=== PATIENT | male | born 1985 | race American Indian/Alaskan Native ===

== ENCOUNTER 2019-04-05 12:19 | Emergency (ER) | payer SELFPAY ==
--- NOTE | 2019-04-05 12:29 | Emergency Department Report ---
Blank Doc - Documentation Documentation: This is a 33-year-old male that presents with nausea and abdominal pain. This initial assessment/diagnostic orders/clinical plan/treatment(s) is/are subject to change based on patient's health status, clinical progression and re- assessment by fellow clinical providers in the ED. Further treatment and workup at subsequent clinical providers discretion. Patient/guardians urged not to elope from the ED as their condition may be serious if not clinically assessed and managed. Initial orders include: 1- Patient sent to [facility] for further evaluation and treatment 2- labs 3- UA
[2019-04-05 12:30] VITALS: BP 139/83
[2019-04-05] MEDS ORDERED: ZOFRAN ODT PO ONE (13:02)
[2019-04-05] MEDS ORDERED: NACL 0.9% 1000 ML 1,000 ML ONE (13:34)
--- NOTE | 2019-04-05 13:40 | XRay Report ---
ABDOMEN, 2 views: History: Abdominal pain, nausea and vomiting. There is no evidence of free air beneath the diaphragms. The gas pattern within the abdomen is unremarkable. There is no evidence of bowel dilatation, significant air-fluid levels, or pathologic calcifications. Organ shadows are unremarkable. IMPRESSION: Unremarkable abdomen.
[2019-04-05 13:45] LABS: Hematocrit 43.5 % (35.5-45.6); Hemoglobin 15.3 gm/dl (11.8-15.2); Mean Corpuscular HGB Conc 35 % (32-34); Mean Corpuscular Volume 88 fl (84-94); Platelet Count 273 K/mm3 (140-440); Red Blood Count 4.93 M/mm3 (3.65-5.03); Red Cell Distribution Width 14.2 % (13.2-15.2)
[2019-04-05] MEDS ORDERED: NACL 0.9% 1000 ML 1,000 ML IV ONE (13:48)
[2019-04-05] MEDS ORDERED: ZOFRAN IV ONE (13:49)
[2019-04-05 14:04] LABS: Alanine Aminotransferase 11 units/L (7-56); Albumin 4.5 g/dL (3.9-5); BUN/Creatinine Ratio 18; Blood Urea Nitrogen 16 mg/dL (9-20); Calcium 9.9 mg/dL (8.4-10.2); Hemolysis Index 54
[2019-04-05] MEDS ORDERED: HALDOL DECANOATE IM ONE (14:18)
[2019-04-05 14:20] LABS: Platelet Estimate Consistent w Auto; RBC Morphology Normal; Total Cells Counted 100
[2019-04-05] MEDS ORDERED: TORADOL IV ONE (14:20)
[2019-04-05] MEDS ORDERED: DILAUDID ONE (14:21)
[2019-04-05] MEDS ORDERED: DILAUDID IV ONE (14:29)
[2019-04-05] MEDS ORDERED: HALDOL IV ONE (14:32)
--- NOTE | 2019-04-05 15:10 | Emergency Department Report ---
HPI - General Chief Complaint: Nausea/Vomiting/Diarrhea Time Seen by Provider: 04/05/19 12:29 - HPI HPI: Mr. Cantor is a 33-year-old male who comes to the ER today with nausea and vomiting. He has very dramatic on admission to a CT with gagging and vomiting. He states that he has gastric ulcers. He last used THC yesterday. ED Past Medical Hx - Past Medical History Previous Medical History?: Yes Additional medical history: ulcers - Surgical History Past Surgical History?: No - Family History Family history: no significant - Social History Smoking Status: Never Smoker Substance Use Type: Marijuana - Medications Home Medications: Home Medications Medication Instructions Recorded Confirmed Last Taken Type Famotidine [Pepcid] 40 mg PO DAILY #30 tablet 04/05/19 Unknown Rx ED Review of Systems ROS: Stated complaint: V/D NAUSEA Other details as noted in HPI Comment: All other systems reviewed and negative Physical Exam - Physical Exam Vital Signs: Vital Signs 04/05/19 12:28 Temperature 99.5 F Pulse Rate 53 L Respiratory 16 Rate Blood Pressure 139/83 [Left] O2 Sat by Pulse 99 Oximetry Physical Exam: WDWN patient in NAD VS per RN flow sheet Alert and oriented to person, place and time. S1-S2. No S3 or S4. No systolic or diastolic murmur. No JVD. No pitting [place] ma. Lungs clear to auscultation bilaterally anteriorly and posteriorly. Abdomen soft nontender bowel sounds X4. VOMITING ON ADMIT- BILOUS VOMIT. NO BLOOD IN VOMIT Moves all extremities well. Mood and affect appropriate. ED Course Vital Signs 04/05/19 12:28 Temperature 99.5 F Pulse Rate 53 L Respiratory 16 Rate Blood Pressure 139/83 [Left] O2 Sat by Pulse 99 Oximetry - Reevaluation(s) Reevaluation #1: PER RN PT LEFT ROOM PRIOR TO FAMILY GETTING HERE. CHARGE NURSE AWARE ED Medical Decision Making - Lab Data Result diagrams: 04/05/19 13:25 04/05/19 13:25 - Radiology Data Radiology results: report reviewed, image reviewed - Medical Decision Making Labs 04/05/19 04/05/19 13:25 13:25 WBC 5.2 RBC 4.93 Hgb 15.3 H Hct 43.5 MCV 88 MCH 31 MCHC 35 H RDW 14.2 Plt Count 273 Add Manual Diff Complete Total Counted 100 Seg Neutrophils % Casino Host Seg Neuts % (Manual) 29.0 L Band Neutrophils % 0 Lymphocytes % (Manual) 58.0 H Reactive Lymphs % (Man) 1.0 Monocytes % (Manual) 8.0 H Eosinophils % (Manual) 3.0 Basophils % (Manual) 1.0 Metamyelocytes % 0 Myelocytes % 0 Promyelocytes % 0 Blast Cells % 0 Nucleated RBC % Not Reportable Seg Neutrophils # Man 1.5 L Band Neutrophils # 0.0 Lymphocytes # (Manual) 3.0 Abs React Lymphs (Man) 0.1 Monocytes # (Manual) 0.4 Eosinophils # (Manual) 0.2 Basophils # (Manual) 0.1 Metamyelocytes # 0.0 Myelocytes # 0.0 Promyelocytes # 0.0 Blast Cells # 0.0 WBC Morphology Not Reportable Hypersegmented Neuts Not Reportable Hyposegmented Neuts Not Reportable Hypogranular Neuts Not Reportable Smudge Cells Not Reportable Toxic Granulation Not Reportable Toxic Vacuolation Not Reportable Dohle Bodies Not Reportable Pelger-Huet Anomaly Not Reportable Nilesh Rods Not Reportable Platelet Estimate Consistent w auto Clumped Platelets Not Reportable Plt Clumps, EDTA Not Reportable Large Platelets Not Reportable Giant Platelets Not Reportable Platelet Satelliting Not Reportable Plt Morphology Comment Not Reportable RBC Morphology Normal Dimorphic RBCs Not Reportable Polychromasia Not Reportable Hypochromasia Not Reportable Poikilocytosis Not Reportable Anisocytosis Not Reportable Microcytosis Not Reportable Macrocytosis Not Reportable Spherocytes Not Reportable Pappenheimer Bodies Not Reportable Sickle Cells Not Reportable Target Cells Not Reportable Tear Drop Cells Not Reportable Ovalocytes Not Reportable Helmet Cells Not Reportable [place] Bodies Not Reportable [place] Rings Not Reportable Sue Cells Not Reportable Bite Cells Not Reportable Crenated Cell Not Reportable Elliptocytes Not Reportable Acanthocytes (Spur) Not Reportable Rouleaux Not Reportable Hemoglobin C Crystals Not Reportable Schistocytes Not Reportable Malaria parasites Not Reportable Charli Bodies Not Reportable Hem Pathologist Commnt No Sodium 139 Potassium 4.1 Chloride 99.4 Carbon Dioxide 26 Anion Gap 18 BUN 16 Creatinine 0.9 Estimated GFR > 60 BUN/Creatinine Ratio 18 Glucose 112 H Calcium 9.9 Total Bilirubin 0.60 AST 18 ALT 11 Alkaline Phosphatase 81 Total Protein 8.1 Albumin 4.5 Albumin/Globulin Ratio 1.3 Lipase 14 Vital Signs 04/05/19 04/05/19 12:28 15:09 Temperature 99.5 F Pulse Rate 53 L Respiratory 16 15 Rate Blood Pressure 139/83 [Left] O2 Sat by Pulse 99 Oximetry medicated for pain and vomiting 1L NS given GI cocktail given pain relieved W MEDS VSS NO FREE AIR ON XRAY ambulatory and taking PO Discussed with pt the role THC can cause with n/v. DC home with dc plan of care - to follow up with GI. FAMILY BEING CALLED BY health care facilities inspector attestation.: If time is entered above; I have spent that time in minutes in the direct care of this critically ill patient, excluding procedure time. ED Disposition Clinical Impression: Vomiting Disposition: ELOPED Is pt being admited?: No Does the pt Need Aspirin: No Condition: Stable Instructions: Acute Nausea and Vomiting (ED) Additional Instructions: ALL LABS NORMAL TODAY AVOID MARIJUANA- IT CAN CAUSE VOMITING HYDRATE WELL WITH WATER FOLLOW UP WITH GI MD Prescriptions: Famotidine [Pepcid] 40 mg PO DAILY #30 tablet Referrals: NAYLA KNIGHT MD [Staff Physician] - 3-5 Days GOMEZ CORADO MD [Staff Physician] - 3-5 Days MERA NORIEGA MD [Staff Physician] - 3-5 Days Time of Disposition: 16:22
[2019-04-05] MEDS ORDERED: LIDOCAINE VISCOUS 2% PO ONE (16:22)
[2019-04-05] MEDS ORDERED: ALUM-MAG HYDROX-SIMETH 200-200-20MG/5ML PO ONE (16:22)
[2019-04-05] MEDS ORDERED: PROTONIX PO ONE (16:22)
== END 2019-04-05 17:33 | disposition left against medical advice (07) ==
LOC: ED 12:19
DX: R11.2 Nausea with vomiting, unspecified (principal); F12.10 Cannabis abuse, uncomplicated
CPT/HCPCS: 36415; 74019; 80053; 83690; 85007; 85025; 96361; 96374; 96375; 99283; J1170; J1630; J2405; J7030; J1631; Q0162

== ENCOUNTER 2021-02-10 08:26 | Emergency (ER) | payer SELFPAY ==
[2021-02-10] MEDS ORDERED: ONDANSETRON 4 MG/2 ML INJ IV ONE (08:53)
[2021-02-10] MEDS ORDERED: DICYCLOMINE 20 MG/2 ML INJ IM ONE (08:53)
[2021-02-10] MEDS ORDERED: SODIUM CHLORIDE 0.9% 1000 ML 1,000 ML IV ONE (08:53)
--- NOTE | 2021-02-10 10:02 | Emergency Department Report ---
ED Abdominal Pain HPI - General Chief Complaint: Abdominal Pain Stated Complaint: ABD PAIN Time Seen by Provider: 02/10/21 08:39 Source: patient, EMS Mode of arrival: Ambulatory Limitations: No Limitations - History of Present Illness Initial Comments: Patient is a 35-year-old male with no significant past medical history. Patient presented to the ER complaining of nausea vomiting and watery diarrhea since last night. Patient stated that he think this is most likely food poisoning. Patient denied any fever or chills. MD Complaint: abdominal pain -: days(s) Location: diffuse Radiation: none Severity: moderate Quality: cramping Consistency: intermittent Associated Symptoms: nausea, vomiting, diarrhea. denies: fever - Related Data Previous Rx's Medication Instructions Recorded Last Taken Type Famotidine [Pepcid] 40 mg PO DAILY #30 tablet 04/05/19 Unknown Rx Allergies Allergy/AdvReac Type Severity Reaction Status Date / Time No Known Allergies Allergy Unverified 10/06/18 17:20 ED Review of Systems ROS: Stated complaint: ABD PAIN Other details as noted in HPI Comment: All other systems reviewed and negative Constitutional: denies: chills, fever Respiratory: denies: cough, shortness of breath, SOB with exertion, SOB at rest Cardiovascular: denies: chest pain Gastrointestinal: abdominal pain, nausea, vomiting, diarrhea Musculoskeletal: denies: back pain Neurological: weakness. denies: headache, numbness, paresthesias, confusion, abnormal gait ED Past Medical Hx - Past Medical History Previous Medical History?: Yes Additional medical history: ulcers - Surgical History Past Surgical History?: No - Social History Smoking Status: Current Every Day Smoker - Medications Home Medications: Home Medications Medication Instructions Recorded Confirmed Last Taken Type Famotidine [Pepcid] 40 mg PO DAILY #30 tablet 04/05/19 Unknown Rx ED Physical Exam - General Limitations: No Limitations - Head Head exam: Present: atraumatic, normocephalic, normal inspection - Eye Eye exam: Present: normal appearance - ENT ENT exam: Present: mucous membranes dry - Neck Neck exam: Present: normal inspection, full ROM. Absent: tenderness, meningismus - Respiratory Respiratory exam: Present: normal lung sounds bilaterally - Cardiovascular Cardiovascular Exam: Present: regular rate, normal rhythm, normal heart sounds - GI/Abdominal GI/Abdominal exam: Present: soft, normal bowel sounds. Absent: distended, tenderness, guarding, rebound, rigid, organomegaly, mass, bruit, pulsatile mass, hernia - Extremities Exam Extremities exam: Present: normal inspection, full ROM, normal capillary refill. Absent: tenderness - Back Exam Back exam: Present: normal inspection, full ROM. Absent: CVA tenderness (R), CVA tenderness (L) - Neurological Exam Neurological exam: Present: alert, oriented X3, CN II-XII intact - Psychiatric Psychiatric exam: Present: normal mood - Skin Skin exam: Present: warm, dry, intact ED Course Vital Signs 02/10/21 02/10/21 02/10/21 08:30 08:40 08:46 Temperature 97.6 F Pulse Rate 62 61 Respiratory 15 15 18 Rate Blood Pressure 127/85 127/85 O2 Sat by Pulse 100 100 100 Oximetry 02/10/21 09:00 Temperature Pulse Rate Respiratory Rate Blood Pressure 127/85 O2 Sat by Pulse 100 Oximetry ED Medical Decision Making - Lab Data Result diagrams: 02/10/21 09:44 02/10/21 09:44 - Medical Decision Making Patient is a 35-year-old male with no significant past medical history. Patient presented to the ER complaining of nausea vomiting and watery diarrhea since last night. Patient stated that he think this is most likely food poisoning. Patient denied any fever or chills. Labs reviewed and is unremarkable. Patient received normal saline, Zofran and Bentyl. Patient stated that he is feeling better. Patient given prescription for Zofran and Bentyl and advised to follow-up with his primary doctor in the next 2 to 3 days and to return to the ER if he develop any new symptoms. Critical care attestation.: If time is entered above; I have spent that time in minutes in the direct care of this critically ill patient, excluding procedure time. ED Disposition Clinical Impression: Acute abdominal pain, Acute gastroenteritis Disposition: DC-01 TO HOME OR SELFCARE Is pt being admited?: No Condition: Stable Instructions: Abdominal Pain, Adult, [id number], Viral Gastroenteritis, Adult, [id number] Referrals: PRIMARY CARE,MD [Primary Care Provider] - 3-5 Days
[2021-02-10 11:01] LABS: Basophils # (Auto) 0.1 K/mm3 (0.0-0.1); Basophils % (Auto) 0.7 % (0.0-1.8); Eosinophils % (Auto) 0.4 % (0.0-4.3); Hematocrit 43.8 % (35.5-45.6); Hemoglobin 15.1 gm/dl (11.8-15.2); Lymphocytes # (Auto) 2.4 K/mm3 (1.2-5.4); Mean Corpuscular HGB Conc 34 % (32-34); Mean Corpuscular Volume 93 fl (84-94); Monocytes # (Auto) 0.5 K/mm3 (0.0-0.8); Monocytes % (Auto) 6.2 % (0.0-7.3); Platelet Count 229 K/mm3 (140-440); Red Blood Count 4.72 M/mm3 (3.65-5.03); Red Cell Distribution Width 13.2 % (13.2-15.2)
[2021-02-10 11:15] LABS: Alanine Aminotransferase 9 units/L (7-56); BUN/Creatinine Ratio 15; Blood Urea Nitrogen 12 mg/dL (9-20); Calcium 9.3 mg/dL (8.4-10.2); Hemolysis Index 88
[2021-02-10 11:22] LABS: Bilirubin,Direct < 0.2 mg/dL (0-0.2)
[2021-02-10] MEDS ORDERED: KETOROLAC 60 MG/2 ML INJ IM ONE (11:44)
[2021-02-10 13:29] VITALS: BP 122/80
== END 2021-02-10 13:45 | disposition home or self-care (01) ==
LOC: ED 08:26
DX: K52.89 Other specified noninfective gastroenteritis and colitis (principal); F17.200 Nicotine dependence, unspecified, uncomplicated; Z79.899 Other long term (current) drug therapy
CPT/HCPCS: 36415; 80048; 80076; 83690; 85025; 96361; 96372; 96374; 99284; J0500; J1885; J2405; J7030